=== PATIENT | female | born 1950 | race African-American/Black ===

== ENCOUNTER 2022-09-26 13:13 | Inpatient (IN) | payer OTHER ==
[~2022-09-26 13:13] MED LIST: Iopamidol-370 76% 500 ML 1 ML ONE
[2022-09-26 14:00] LABS: #Eosinphils 0.3 thou/uL (0.0-0.7); #Lymphocytes 2.4 thou/uL (1.20-3.40); #Monocytes 1.1 thou/uL (0.11-0.59); #Neutrophils 10.4 thou/uL (1.40-6.50); %Basophils 0.1 % (0.0-1.0); %Eosinophils 1.8 % (0.0-10.0); %Lymphocytes 16.7 % (21.0-51.0); %Neutrophils 73.5 % (42.0-75.0); Hemoglobin 11.7 g/dL (12.0-16.0); Mean Corpuscular HGB CONC 31.8 g/dL (32.0-36.0); Mean Corpuscular Hemoglobin 29.8 pg (27.0-31.0); Mean Corpuscular Volume 93.9 fl (78.0-98.0); Platelet Count 222 10x3/uL (130-400); RBC Distribution Width 13.1 % (11.5-14.5); Red Blood Cell (RBC) Count 3.94 mill/uL (4.20-5.40); White Blood Cell (WBC) Count 14.1 10x3/uL (4.8-10.8)
[2022-09-26] MEDS ORDERED: Fentanyl 100 MCG/2 ML VIAL ONE (14:05)
[2022-09-26 14:18] LABS: ALT (SGPT) 16 U/L (8-55); AST (SGOT) 31 U/L (5-34); Albumin 3.7 g/dL (3.4-4.8); Alkaline Phosphatase 107 U/L (40-110); Anion Gap 17 mmol/L (10-20); BUN (Urea Nitrogen) 12 mg/dL (9.8-20.1); Bilirubin, Total 0.6 mg/dL (0.2-1.2); Calc. Creatinine Clearance 0 mL/min (70-130); Calcium 8.4 mg/dL (7.8-10.44); Carbon Dioxide 19 mmol/L (23-31); Chloride 107 mmol/L (98-107); Estimated GFR 87; Globulin 3.1 g/dL (2.4-3.5); Glucose 106 mg/dL (83-110); Lipase 21 U/L (8-78); Potassium 4.1 mmol/L (3.5-5.1); Protein, Total 6.8 g/dL (5.8-8.1); Sodium 139 mmol/L (136-145)
[2022-09-26 14:26] LABS: Acetaminophen Less than 10.0 mcg/mL (10.0-30.0); Alcohol Less than 10 mg/dL (Less than 10); Salicylate Less than 8.0 mg/dL (15.0-30.0)
[2022-09-26] MEDS ORDERED: HumaLOG 300 UNITS/3 ML VIAL SC PRN (15:57)
[2022-09-26] MEDS ORDERED: Ondansetron PF 4 MG/2 ML Vial IVP PRN (15:57)
[2022-09-26] MEDS ORDERED: Morphine 2 MG/ML VIAL SLOW IVP PRN (15:57)
[2022-09-26] MEDS ORDERED: Ipratropium/Albuterol 3 ML NEB NEB PRN (15:57)
[2022-09-26] MEDS ORDERED: TETANUS, DIPHTHERIA TOX,ADULT (TDVAX) 0.5 ML VIAL IM ONE (15:57)
[2022-09-26] MEDS ORDERED: Dextrose 50% Abboject 50 ML SYRINGE SLOW IVP PRN (15:57)
[2022-09-26] MEDS ORDERED: Dextrose 5% in Water 1,000 ML IV PRN (15:57)
[2022-09-26] MEDS ORDERED: Sodium Chloride 0.9% 1,000 ML IV SCH (16:00)
[2022-09-26] MEDS ORDERED: Ibuprofen 600 MG TAB PO PRN (16:02)
[2022-09-26] MEDS ORDERED: traMADol HCl 50 MG TAB PO PRN (16:02)
[2022-09-26 16:07] LABS: SARS-CoV-2 NAA Rapid Test Not Detected (NotDetected)
[2022-09-26] MEDS ORDERED: Ketorolac Tromethamine 30 MG/ML VIAL IVP SCH ×2 (16:15→18:00)
[2022-09-26] MEDS ORDERED: Morphine 4 MG/ML VIAL ONE (16:23)
[2022-09-26 16:44] LABS: Bilirubin Negative (Negative); Blood, Urine Negative (Negative); Clarity Clear (Clear); Glucose, Urine (Dipstick) Normal (Negative); Ketone, Urine Negative (Negative); Leukocyte Negative Leu/uL (Negative); Nitrite Negative (Negative); Protein, Urine (Dipstick) Negative (Neg-Trace); Specific Gravity, Urine 1.036 (1.002-1.036); Urobilinogen Normal mg/dL (Less than 2)
[2022-09-26 18:10] VITALS: BMI 29.5
[2022-09-26] MEDS ORDERED: Acetaminophen 500 MG TAB PO SCH (18:15)
[2022-09-26] MEDS: traMADol HCl 50 MG TAB PO SCH (18:27)
[2022-09-26] MEDS: Atorvastatin Calcium 40 MG TAB PO SCH (21:25)
[2022-09-26] MEDS: Senokot S 8.6-50 MG TAB PO SCH (21:26)
[2022-09-26] MEDS: Gabapentin 100 MG CAP PO SCH (21:26)
[2022-09-26] MEDS: Famotidine/PF 20 mg/2ml Vial SLOW IVP SCH (21:28)
[2022-09-27] MEDS: Ketorolac Tromethamine 30 MG/ML VIAL IVP SCH ×2 (00:37→05:42)
[2022-09-27] MEDS: Acetaminophen 500 MG TAB PO SCH ×4 (00:38→18:06)
[2022-09-27] MEDS: traMADol HCl 50 MG TAB PO SCH ×4 (00:40→18:07)
[2022-09-27 07:43] LABS: #Eosinphils 0.2 thou/uL (0.0-0.7); #Lymphocytes 1.3 thou/uL (1.20-3.40); #Monocytes 0.7 thou/uL (0.11-0.59); #Neutrophils 4.3 thou/uL (1.40-6.50); %Basophils 0.4 % (0.0-1.0); %Eosinophils 3.6 % (0.0-10.0); %Lymphocytes 19.3 % (21.0-51.0); %Monocytes 10.7 % (0.0-10.0); Hemoglobin 10.9 g/dL (12.0-16.0); Mean Corpuscular HGB CONC 32.6 g/dL (32.0-36.0); Mean Corpuscular Hemoglobin 30.5 pg (27.0-31.0); Mean Corpuscular Volume 93.7 fl (78.0-98.0); Mean Platelet Volume 7.9 fL (7.4-10.4); Platelet Count 211 10x3/uL (130-400); RBC Distribution Width 12.9 % (11.5-14.5); Red Blood Cell (RBC) Count 3.57 mill/uL (4.20-5.40); White Blood Cell (WBC) Count 6.5 10x3/uL (4.8-10.8)
[2022-09-27 07:54] LABS: Phosphorus 3.9 mg/dL (2.3-4.7)
[2022-09-27 07:56] LABS: Anion Gap 13 mmol/L (10-20); BUN (Urea Nitrogen) 7 mg/dL (9.8-20.1); Calc. Creatinine Clearance 123 mL/min (70-130); Calcium 8.9 mg/dL (7.8-10.44); Carbon Dioxide 21 mmol/L (23-31); Chloride 108 mmol/L (98-107); Estimated GFR 98; Glucose 112 mg/dL (80-115); Magnesium 1.8 mg/dL (1.6-2.6); Potassium 4.1 mmol/L (3.5-5.1); Sodium 138 mmol/L (136-145)
[2022-09-27 07:57] LABS: INR-International Normal Ratio 1.1; Prothrombin Time 14.3 sec (12.0-14.7)
[2022-09-27 07:58] LABS: PTT 34.5 sec (22.9-36.1)
[2022-09-27] MEDS ORDERED: Amlodipine 10 MG TAB PO SCH (09:00)
[2022-09-27] MEDS ORDERED: Lisinopril/Hydrochlorothiazide 10 mg/12.5 mg Tablet PO SCH (09:00)
[2022-09-27] MEDS: Multivitamin W/ Minerals 1 TAB PO SCH (09:19)
[2022-09-27] MEDS: Anastrozole 1 MG TAB PO SCH (09:20)
[2022-09-27] MEDS: Senokot S 8.6-50 MG TAB PO SCH ×2 (09:21→21:19)
[2022-09-27] MEDS: Famotidine/PF 20 mg/2ml Vial SLOW IVP SCH ×2 (09:21→21:19)
[2022-09-27] MEDS: Gabapentin 100 MG CAP PO SCH (09:21)
[2022-09-27] MEDS: Polyethylene Glycol 3350 17 GM Packet PO SCH (09:41)
[2022-09-27] MEDS ORDERED: Ibuprofen 200 MG TAB PO PRN (10:53)
[2022-09-27] MEDS: Gabapentin 300 MG CAP PO SCH ×2 (15:12→21:19)
[2022-09-27] MEDS: Ipratropium/Albuterol 3 ML NEB NEB SCH (18:25)
[2022-09-27] MEDS: Atorvastatin Calcium 40 MG TAB PO SCH (21:20)
[2022-09-27] MEDS: Hydrocortisone Sod Succ/PF 100 mg/2 ml Vial IVP SCH (22:00)
[2022-09-28] MEDS: Acetaminophen 500 MG TAB PO SCH ×2 (00:17→05:50)
[2022-09-28] MEDS: traMADol HCl 50 MG TAB PO SCH ×4 (00:17→20:30)
[2022-09-28] MEDS: Ipratropium/Albuterol 3 ML NEB NEB SCH ×5 (00:28→23:50)
[2022-09-28 03:49] LABS: #Basophils 0.1 thou/uL (0.0-0.2); #Lymphocytes 0.9 thou/uL (1.20-3.40); #Monocytes 0.5 thou/uL (0.11-0.59); #Neutrophils 7.4 thou/uL (1.40-6.50); %Basophils 0.6 % (0.0-1.0); %Eosinophils 0.5 % (0.0-10.0); %Lymphocytes 9.9 % (21.0-51.0); %Monocytes 5.5 % (0.0-10.0); %Neutrophils 83.4 % (42.0-75.0); Hemoglobin 10.5 g/dL (12.0-16.0); Mean Corpuscular Hemoglobin 30.5 pg (27.0-31.0); Mean Corpuscular Volume 92.3 fl (78.0-98.0); Platelet Count 181 10x3/uL (130-400); RBC Distribution Width 12.8 % (11.5-14.5); Red Blood Cell (RBC) Count 3.44 mill/uL (4.20-5.40); White Blood Cell (WBC) Count 8.8 10x3/uL (4.8-10.8)
[2022-09-28 04:11] LABS: Anion Gap 12 mmol/L (10-20); BUN (Urea Nitrogen) 13 mg/dL (9.8-20.1); Calc. Creatinine Clearance 111 mL/min (70-130); Calcium 8.7 mg/dL (7.8-10.44); Carbon Dioxide 24 mmol/L (23-31); Chloride 105 mmol/L (98-107); Estimated GFR 96; Glucose 134 mg/dL (80-115); Magnesium 1.9 mg/dL (1.6-2.6); Phosphorus 4.4 mg/dL (2.3-4.7); Potassium 3.9 mmol/L (3.5-5.1); Sodium 137 mmol/L (136-145)
[2022-09-28] MEDS: Gabapentin 300 MG CAP PO SCH ×3 (09:39→20:30)
[2022-09-28] MEDS: Senokot S 8.6-50 MG TAB PO SCH ×2 (09:39→20:31)
[2022-09-28] MEDS: Anastrozole 1 MG TAB PO SCH (09:39)
[2022-09-28] MEDS: Famotidine 20 MG TAB PO SCH ×2 (09:39→20:31)
[2022-09-28] MEDS: Multivitamin W/ Minerals 1 TAB PO SCH (09:39)
[2022-09-28] MEDS: Polyethylene Glycol 3350 17 GM Packet PO SCH (09:40)
[2022-09-28] MEDS: Hydrocortisone Sod Succ/PF 100 mg/2 ml Vial IVP SCH ×3 (09:40→20:29)
[2022-09-28] MEDS ORDERED: Ketorolac Tromethamine 30 MG/ML VIAL IVP SCH (10:45)
[2022-09-28] MEDS: Acetaminophen/Codeine 30-300mg Tablet PO SCH ×5 (10:54→23:59)
[2022-09-28] MEDS: Acetaminophen 325 MG TAB PO SCH ×4 (12:00→23:57)
[2022-09-28] MEDS: Ketorolac Tromethamine 30 MG/ML VIAL IVP SCH ×3 (12:01→22:32)
[2022-09-28] MEDS: Midodrine HCl 5 MG TAB PO SCH ×2 (16:03→20:31)
[2022-09-28] MEDS: Cyclobenzaprine 10 MG TAB PO PRN (20:29)
[2022-09-28] MEDS: Atorvastatin Calcium 40 MG TAB PO SCH (20:30)
[2022-09-29] MEDS: traMADol HCl 50 MG TAB PO SCH ×5 (03:36→21:11)
[2022-09-29] MEDS: Cyclobenzaprine 10 MG TAB PO PRN (04:32)
[2022-09-29] MEDS: Acetaminophen 325 MG TAB PO SCH ×4 (05:56→23:46)
[2022-09-29] MEDS: Ketorolac Tromethamine 30 MG/ML VIAL IVP SCH ×4 (05:56→23:46)
[2022-09-29] MEDS: Ipratropium/Albuterol 3 ML NEB NEB SCH ×4 (06:41→23:18)
[2022-09-29] MEDS: Polyethylene Glycol 3350 17 GM Packet PO SCH (09:41)
[2022-09-29] MEDS: Midodrine HCl 5 MG TAB PO SCH ×2 (09:41→15:10)
[2022-09-29] MEDS: Multivitamin W/ Minerals 1 TAB PO SCH (09:41)
[2022-09-29] MEDS: Senokot S 8.6-50 MG TAB PO SCH ×2 (09:41→21:12)
[2022-09-29] MEDS: Hydrocortisone Sod Succ/PF 100 mg/2 ml Vial IVP SCH ×3 (09:41→21:11)
[2022-09-29] MEDS: Famotidine 20 MG TAB PO SCH ×2 (09:41→21:12)
[2022-09-29] MEDS: Anastrozole 1 MG TAB PO SCH (09:42)
[2022-09-29] MEDS: Gabapentin 300 MG CAP PO SCH ×3 (09:42→21:12)
[2022-09-29] MEDS: Acetaminophen/Codeine 30-300mg Tablet PO SCH ×3 (11:18→23:46)
[2022-09-29 14:09] LABS: Bacteria/HPF 1+ HPF (None Seen); Bilirubin Negative (Negative); Blood, Urine Negative (Negative); CAUTI Indications for Culture Dysuria,urgency,freq; Clarity Clear (Clear); Glucose, Urine (Dipstick) Normal (Negative); Ketone, Urine Negative (Negative); Leukocyte 75 Leu/uL (Negative); Nitrite Negative (Negative); Protein, Urine (Dipstick) Negative (Neg-Trace); RBC/HPF 0-3 HPF (0-3); Specific Gravity, Urine 1.007 (1.002-1.036); Squamous Epithelial None Seen HPF (0-3); Urobilinogen Normal mg/dL (Less than 2); WBC/HPF 0-3 HPF (0-3); pH, Urine 5.5 (5.0-9.0)
[2022-09-29 14:10] LABS: Urine Culture Reflex No No
[2022-09-29] MEDS: Ciprofloxacin 500 MG TAB PO SCH (21:12)
[2022-09-29] MEDS: Atorvastatin Calcium 40 MG TAB PO SCH (21:12)
[2022-09-30] MEDS: Cyclobenzaprine 10 MG TAB PO PRN (01:41)
[2022-09-30] MEDS: traMADol HCl 50 MG TAB PO SCH (02:02)
[2022-09-30] MEDS: Acetaminophen/Codeine 30-300mg Tablet PO SCH ×4 (05:11→20:09)
[2022-09-30] MEDS: Ketorolac Tromethamine 30 MG/ML VIAL IVP SCH (05:13)
[2022-09-30] MEDS: Ciprofloxacin 500 MG TAB PO SCH ×2 (05:13→20:09)
[2022-09-30] MEDS: Acetaminophen 325 MG TAB PO SCH ×4 (05:13→23:20)
[2022-09-30] MEDS: Ipratropium/Albuterol 3 ML NEB NEB SCH ×4 (07:18→23:31)
[2022-09-30] MEDS: Polyethylene Glycol 3350 17 GM Packet PO SCH (09:09)
[2022-09-30] MEDS: Famotidine 20 MG TAB PO SCH ×2 (09:10→20:09)
[2022-09-30] MEDS: Gabapentin 300 MG CAP PO SCH ×3 (09:10→20:10)
[2022-09-30] MEDS: Multivitamin W/ Minerals 1 TAB PO SCH (09:10)
[2022-09-30] MEDS: Anastrozole 1 MG TAB PO SCH (09:10)
[2022-09-30] MEDS: Senokot S 8.6-50 MG TAB PO SCH ×2 (09:12→20:09)
[2022-09-30] MEDS: Ibuprofen 200 MG TAB PO SCH ×2 (11:56→21:03)
[2022-09-30] MEDS: Atorvastatin Calcium 40 MG TAB PO SCH (20:09)
[2022-10-01] MEDS: Acetaminophen/Codeine 30-300mg Tablet PO SCH ×4 (03:26→21:05)
[2022-10-01] MEDS: Acetaminophen 325 MG TAB PO SCH ×3 (05:37→18:13)
[2022-10-01] MEDS: Ciprofloxacin 500 MG TAB PO SCH (05:37)
[2022-10-01] MEDS: Ibuprofen 200 MG TAB PO SCH ×3 (05:37→21:06)
[2022-10-01] MEDS: Ipratropium/Albuterol 3 ML NEB NEB SCH ×4 (06:57→22:34)
[2022-10-01] MEDS: Senokot S 8.6-50 MG TAB PO SCH ×2 (09:33→21:06)
[2022-10-01] MEDS: Multivitamin W/ Minerals 1 TAB PO SCH (09:33)
[2022-10-01] MEDS: Famotidine 20 MG TAB PO SCH ×2 (09:33→21:06)
[2022-10-01] MEDS: Polyethylene Glycol 3350 17 GM Packet PO SCH (09:33)
[2022-10-01] MEDS: Anastrozole 1 MG TAB PO SCH (09:33)
[2022-10-01] MEDS: Gabapentin 300 MG CAP PO SCH ×3 (09:34→21:05)
[2022-10-01] MEDS: traMADol HCl 50 MG TAB PO PRN (18:15)
[2022-10-01] MEDS: Atorvastatin Calcium 40 MG TAB PO SCH (21:05)
[2022-10-02] MEDS: Acetaminophen 325 MG TAB PO SCH ×5 (01:06→23:06)
[2022-10-02] MEDS: Acetaminophen/Codeine 30-300mg Tablet PO SCH ×4 (03:28→20:25)
[2022-10-02] MEDS: Ibuprofen 200 MG TAB PO SCH ×3 (05:49→23:06)
[2022-10-02] MEDS: Ipratropium/Albuterol 3 ML NEB NEB SCH ×3 (07:27→18:44)
[2022-10-02] MEDS: Gabapentin 300 MG CAP PO SCH ×3 (09:44→20:26)
[2022-10-02] MEDS: Famotidine 20 MG TAB PO SCH ×2 (09:44→20:26)
[2022-10-02] MEDS: Senokot S 8.6-50 MG TAB PO SCH ×2 (09:44→20:26)
[2022-10-02] MEDS: Polyethylene Glycol 3350 17 GM Packet PO SCH (09:44)
[2022-10-02] MEDS: Anastrozole 1 MG TAB PO SCH (09:44)
[2022-10-02] MEDS: Multivitamin W/ Minerals 1 TAB PO SCH (09:44)
[2022-10-02] MEDS: Cyclobenzaprine 10 MG TAB PO PRN (11:57)
[2022-10-02] MEDS: traMADol HCl 50 MG TAB PO PRN (17:24)
[2022-10-02] MEDS: Atorvastatin Calcium 40 MG TAB PO SCH (20:26)
[2022-10-03] MEDS: Ipratropium/Albuterol 3 ML NEB NEB SCH ×3 (00:31→10:04)
[2022-10-03] MEDS: Acetaminophen/Codeine 30-300mg Tablet PO SCH ×2 (02:06→09:19)
[2022-10-03] MEDS: Ibuprofen 200 MG TAB PO SCH (05:53)
[2022-10-03] MEDS: Acetaminophen 325 MG TAB PO SCH ×2 (05:54→11:51)
[2022-10-03] MEDS: Multivitamin W/ Minerals 1 TAB PO SCH (09:19)
[2022-10-03] MEDS: Famotidine 20 MG TAB PO SCH (09:19)
[2022-10-03] MEDS: Gabapentin 300 MG CAP PO SCH (09:20)
[2022-10-03] MEDS: Senokot S 8.6-50 MG TAB PO SCH (09:20)
[2022-10-03 11:42] VITALS: BP 137/81; TEMP 97.9
[2022-10-03] MEDS: Polyethylene Glycol 3350 17 GM Packet PO SCH (11:45)
[2022-10-03] MEDS: Anastrozole 1 MG TAB PO SCH (11:51)
[2022-10-03] MEDS: traMADol HCl 50 MG TAB PO PRN (11:52)
== END 2022-10-03 13:00 | disposition home health service (06) | DRG 200 ==
LOC: EDBD 13:13 → ERS 13:13 → IMCU/EMU 16:02 → SJJU 09-28 08:15
PROVIDERS: ADMIT Surgery; ATTEND Surgery
DX: S27.0XXA Traumatic pneumothorax, initial encounter (principal); J98.11 Atelectasis; S22.42XA Multiple fractures of ribs, left side, initial encounter for closed fracture; S27.321A Contusion of lung, unilateral, initial encounter; N39.0 Urinary tract infection, site not specified; I10 Essential (primary) hypertension; E78.5 Hyperlipidemia, unspecified; G89.11 Acute pain due to trauma; R33.9 Retention of urine, unspecified; I95.1 Orthostatic hypotension; V49.9XXA Car occupant (driver) (passenger) injured in unspecified traffic accident, initial encounter; Z98.890 Other specified postprocedural states; Z95.5 Presence of coronary angioplasty implant and graft; Z20.822 Contact with and (suspected) exposure to COVID-19
CPT/HCPCS: 36415; 36416; 70450; 71045; 71260; 72125; 74177; 80048; 80053; 80307; 81001; 81003; 82533; 83690; 83735; 84100; 84484; 85025; 85610; 85730; 86900; 86901; 87077; 87086; 87186; 87811; 90714; 93005; 94640; 96374; 96375; G0390; J1650; J1720; J1815; J1885; J2270; J3010; J7050; J7620; Q9967; S0028; U0002